=== PATIENT | male | born 1945 | race Caucasian/White ===

== ENCOUNTER 2019-08-06 17:17 | Inpatient (IN) ==
[2019-08-06] MEDS ORDERED: Ondansetron 4 MG/2 ML VIAL IVP ONE (17:37)
[2019-08-06] MEDS ORDERED: Morphine Sulfate 2 MG/ML SYRINGE IVP ONE (17:37)
[2019-08-06] MEDS ORDERED: Isovue-370 500 ML BOTTLE IVP ONE (17:39)
[2019-08-06 17:56] LABS: Basophils # 0.1 K/mcL (0.0-0.2); Basophils % 0.3 %; Eosinophils % 0.1 %; Hematocrit 47.9 % (37.5-50.1); Hemoglobin 15.9 g/dL (12.9-16.9); Immature Granulocytes % 1.4 % (0-4); Lymphocytes # 0.6 K/mcL (0.6-4.6); Lymphocytes % 2.9 %; Mean Corpuscular HGB Conc 33.2 g/dL (31.6-35.5); Mean Corpuscular Hemoglobin 28.7 pg (28.0-33.3); Mean Corpuscular Volume 86.5 fL (83.0-100.0); Mean Platelet Volume 10.2 fL (9.4-12.4); Monocytes # 1.2 K/mcL (0.0-1.3); Monocytes % 5.6 %; Neutrophils # 19.3 K/mcL (1.6-8.9); Platelet Count 253 K/mcL (140-400); Red Blood Count 5.54 M/mcL (4.19-5.50); Segmented Neutrophils % 89.7 %; White Blood Count 21.5 K/mcL (4.3-11.1)
[2019-08-06 18:05] LABS: INR 1.2; Prothrombin Time 13.2 Seconds (9.4-12.1)
[2019-08-06 18:08] LABS: Activated Partial Thrombo Time 24.8 Seconds (26.0-36.0)
[2019-08-06] MEDS ORDERED: cefTRIAXone 1,000 MG in Water for inj. (sterile) 10 ML IVP ONE (19:02)
[2019-08-06] MEDS ORDERED: 0.9 % Sodium Chloride 1,000 ML IV ONE (19:03)
[2019-08-06 19:05] LABS: Alanine Aminotransferase 13 Units/L (7-52); Albumin 3.3 g/dL (3.5-5.7); Albumin/Globulin Ratio 0.9 (1.1-2.2); Alkaline Phosphatase 106 Units/L (34-104); Amylase 49 Units/L (29-103); Aspartate Amino Transferase 11 Units/L (13-39); BUN/Creatinine Ratio 52 (6-26); Bilirubin,Direct 0.2 mg/dL (0.0-0.2); Bilirubin,Indirect 0.3 mg/dL (0.0-1.0); Bilirubin,Total 0.5 mg/dL (0.3-1.0); Blood Urea Nitrogen 82 mg/dL (8-23); Calcium 8.9 mg/dL (8.6-10.3); Carbon Dioxide 16 mEq/L (23-29); Chloride 77 mEq/L (98-107); Globulin 3.6 g/dL (2.4-3.5); Lipase 113 Units/L (11-82); Osmolality,Calculated 310 (280-300); Potassium 5.9 mEq/L (3.5-5.1); Sodium 117 mEq/L (136-145); Total Protein 6.9 g/dL (6.4-8.9); Troponin I < 0.03 ng/mL (< 0.04); eGFR For African Americans 52 (> 60); eGFR For Non-African Americans 43 (> 60)
[2019-08-06 19:07] LABS: Glucose 846 mg/dL (70-105)
[2019-08-06 19:37] LABS: VBG HCO3 18 mEq/L (21-27); VBG PCO2 36 mmHg (41-51); VBG PO2 80 mmHg (25-50)
[2019-08-06] MEDS ORDERED: Insulin Human Regular 5 UNIT in 0.9 % Sodium Chloride 10 ML IV ONE (19:37)
[2019-08-06] MEDS ORDERED: Calcium Gluconate 1gm/50mL 1 GM/50 ML BAG IVPB ONE (19:38)
[2019-08-06] MEDS ORDERED: Sodium Bicarbonate 50 MEQ/50 ML VIAL IVP ONE (19:39)
[2019-08-06] MEDS ORDERED: *HR* Dextrose 50 % in Water (Syg) 50 ML SYRINGE IVP PRN ×2 (19:53→23:05)
[2019-08-06] MEDS ORDERED: Insulin Human Regular 100 UNIT in 0.9 % Sodium Chloride 100 ML IVC SCH ×2 (20:00→23:30)
[2019-08-06] MEDS ORDERED: Naloxone 0.4 MG/ML INJ IVP PRN (20:48)
[2019-08-06] MEDS ORDERED: Amiodarone 150 MG in D5% in Water 100 ML IVPB ONE (20:55)
[2019-08-06] MEDS ORDERED: Amiodarone Premix 150 MG/100 ML BAG IVPB ONE (21:00)
[2019-08-06 22:01] LABS: Bacteria,Urine None Seen per hpf (None-Few); Squamous Epithelial Cell,Urine Many per lpf (None-Few)
[2019-08-06 22:02] LABS: Bilirubin,Urine Small (Negative); Blood,Urine Negative (Negative); Clarity,Urine Slightly Cloudy (Clear); Color,Urine Yellow (Yellow); Glucose,Urine (UA) 500 mg/dL (Normal); Ketones,Urine Trace mg/dL (Negative); Leukocyte Esterase,Urine Negative (Negative); Nitrite,Urine Negative (Negative); Protein,Urine 30 mg/dL (Neg-Trace); Specific Gravity,Urine 1.015 (1.010-1.025); Urobilinogen,Urine Normal (Normal)
[2019-08-06 22:34] LABS: Hyaline Casts,Urine Many per lpf (None-Few); Mucus,Urine Few per lpf (Few)
[2019-08-06 22:48] LABS: Calcium 8.4 mg/dL (8.6-10.3)
[2019-08-06 22:54] LABS: Carcinoembryonic Antigen 65.5 ng/mL (Less than 5.0)
[2019-08-06] MEDS ORDERED: 0.9 % Sodium Chloride 500 ML ONE (23:03)
[2019-08-06] MEDS ORDERED: Albumin 25% 25gram/100mL 25 GM/100 ML IV.SOLN IVC SCH (23:30)
[2019-08-06] MEDS ORDERED: Lidocaine -MPF 1% 5 ML AMPUL INFILT ONE (23:52)
[2019-08-07] MEDS: Albumin 25% 25gram/100mL 25 GM/100 ML IV.SOLN IVC SCH ×8 (00:21→11:48)
[2019-08-07 00:37] LABS: Calcium 8.4 mg/dL (8.6-10.3); Potassium 5.1 mEq/L (3.5-5.1)
[2019-08-07] MEDS ORDERED: D5% in 0.45% NACL 1,000 ML IVC PRN (00:55)
[2019-08-07] MEDS ORDERED: D5% in 0.45% NACL w KCl 20 MEQ/1,000 ML MLS IVC PRN (00:55)
[2019-08-07] MEDS ORDERED: 0.9 % Sodium Chloride 1,000 ML IVC SCH (01:00)
[2019-08-07] MEDS ORDERED: *HR* Heparin 5,000 UNIT/ML VIAL IVP PRN ×2 (01:20)
[2019-08-07] MEDS ORDERED: *HR* Heparin 5,000 UNIT/ML VIAL IVP ONE (01:20)
[2019-08-07] MEDS ORDERED: Heparin 25,000 UNIT/250 ML D5W 25,000 UNIT/250 ML IV.SOLN IVC SCH (01:30)
[2019-08-07 01:51] LABS: Calcium 8.2 mg/dL (8.6-10.3); Potassium 5.1 mEq/L (3.5-5.1)
[2019-08-07 02:38] LABS: Hematocrit 39.5 % (37.5-50.1); Mean Corpuscular HGB Conc 34.4 g/dL (31.6-35.5); Mean Corpuscular Hemoglobin 29.1 pg (28.0-33.3); Mean Corpuscular Volume 84.4 fL (83.0-100.0); Mean Platelet Volume 10.4 fL (9.4-12.4); Platelet Count 196 K/mcL (140-400); Red Blood Count 4.68 M/mcL (4.19-5.50); Red Cell Distribution Width 12.9 % (11.5-14.5); White Blood Count 21.1 K/mcL (4.3-11.1)
[2019-08-07] MEDS: 0.9 % Sodium Chloride w KCl 20 MEQ/1,000 ML MLS IVC PRN ×2 (02:39→07:10)
[2019-08-07 02:42] LABS: Heparin anti-factor XA UFH < 0.04 IU/mL (0.30-0.70); INR 1.2; Prothrombin Time 13.3 Seconds (9.4-12.1)
[2019-08-07 03:04] LABS: Hemoglobin 13.6 g/dL (12.9-16.9)
[2019-08-07 03:05] LABS: Hepatitis B Surface Antigen Nonreactive (Nonreactive)
[2019-08-07 03:07] LABS: Calcium 8.3 mg/dL (8.6-10.3); Potassium 5.3 mEq/L (3.5-5.1)
[2019-08-07 03:34] LABS: Hepatitis B Core IgM Nonreactive (Nonreactive)
[2019-08-07 03:36] LABS: Hepatitis C Virus Antibody Nonreactive (Nonreactive)
[2019-08-07 03:38] LABS: Hepatitis A Antibody IgM Nonreactive (Nonreactive)
[2019-08-07 04:15] LABS: Total Protein,Peritoneal Fluid 4.5 g/dL
[2019-08-07 04:19] LABS: Appearance of Peritoneal Fl CLOUDY (Clear)
[2019-08-07 05:22] LABS: Basophils % 0.1 %; Eosinophils # 0.1 K/mcL (0.0-0.6); Eosinophils % 0.3 %; Immature Granulocytes % 0.8 % (0-4); Lymphocytes # 1.9 K/mcL (0.6-4.6); Lymphocytes % 8.7 %; Mean Corpuscular HGB Conc 33.3 g/dL (31.6-35.5); Mean Corpuscular Hemoglobin 28.4 pg (28.0-33.3); Mean Corpuscular Volume 85.1 fL (83.0-100.0); Mean Platelet Volume 10.2 fL (9.4-12.4); Monocytes # 1.3 K/mcL (0.0-1.3); Monocytes % 5.9 %; Platelet Count 181 K/mcL (140-400); Red Blood Count 4.23 M/mcL (4.19-5.50); Red Cell Distribution Width 12.8 % (11.5-14.5); Segmented Neutrophils % 84.2 %; White Blood Count 21.3 K/mcL (4.3-11.1)
[2019-08-07 05:29] LABS: INR 1.2; Prothrombin Time 14.1 Seconds (9.4-12.1)
[2019-08-07 05:42] LABS: Chol/HDL Ratio 5.9 (0-4.9); Magnesium 2.7 mg/dL (1.6-2.6)
[2019-08-07 06:01] LABS: Calcium 8.2 mg/dL (8.6-10.3)
[2019-08-07 08:53] LABS: VBG HCO3 23 mEq/L (21-27); VBG PCO2 34 mmHg (41-51); VBG PH 7.44 pH Units (7.32-7.42); VBG PO2 140 mmHg (25-50)
[2019-08-07 10:10] LABS: BUN/Creatinine Ratio 65 (6-26); Blood Urea Nitrogen 75 mg/dL (8-23); Calcium 8.1 mg/dL (8.6-10.3); Carbon Dioxide 22 mEq/L (23-29); Chloride 95 mEq/L (98-107); Glucose 179 mg/dL (70-105); Osmolality,Calculated 291 (280-300); Potassium 4.4 mEq/L (3.5-5.1); Sodium 127 mEq/L (136-145); eGFR For African Americans > 60 (> 60); eGFR For Non-African Americans > 60 (> 60)
[2019-08-07] MEDS: cefTRIAXone 2,000 MG in Water for inj. (sterile) 20 ML IVP SCH (10:40)
[2019-08-07] MEDS: Azithromycin 500 MG in 0.9 % Sodium Chloride 250 ML IVPB SCH (10:40)
[2019-08-07] MEDS: Insulin DETEMIR 100 UNIT/ML X5UNITS SQ SCH ×2 (10:47→22:52)
[2019-08-07] MEDS: Insulin LISPRO 300 UNITS/3 ML VIAL SQ SCH ×4 (11:50→17:19)
[2019-08-07 12:12] LABS: Potassium,Urine 59.7 mEq/L
[2019-08-07] MEDS ORDERED: Ipratropium/Albuterol Neb 3 ML IH PRN (13:12)
[2019-08-07] MEDS: *HR* Heparin 5,000 UNIT/ML VIAL SQ SCH (17:20)
[2019-08-07] MEDS: *HR* HYDROcodone/Acet 5/325 mg TABLET PO PRN (18:30)
[2019-08-08 02:21] LABS: Basophils % 0.1 %; Eosinophils # 0.3 K/mcL (0.0-0.6); Hematocrit 35.9 % (37.5-50.1); Hemoglobin 12.1 g/dL (12.9-16.9); Immature Granulocytes % 0.4 % (0-4); Lymphocytes # 1.2 K/mcL (0.6-4.6); Lymphocytes % 7.9 %; Mean Corpuscular HGB Conc 33.7 g/dL (31.6-35.5); Mean Corpuscular Hemoglobin 29.4 pg (28.0-33.3); Mean Corpuscular Volume 87.3 fL (83.0-100.0); Mean Platelet Volume 10.5 fL (9.4-12.4); Monocytes # 0.7 K/mcL (0.0-1.3); Monocytes % 4.3 %; Neutrophils # 13.3 K/mcL (1.6-8.9); Platelet Count 145 K/mcL (140-400); Red Blood Count 4.11 M/mcL (4.19-5.50); Red Cell Distribution Width 13.2 % (11.5-14.5); Segmented Neutrophils % 85.3 %; White Blood Count 15.6 K/mcL (4.3-11.1)
[2019-08-08 02:50] LABS: BUN/Creatinine Ratio 70 (6-26); Blood Urea Nitrogen 56 mg/dL (8-23); Calcium 8.1 mg/dL (8.6-10.3); Carbon Dioxide 22 mEq/L (23-29); Chloride 96 mEq/L (98-107); Glucose 198 mg/dL (70-105); Magnesium 2.8 mg/dL (1.6-2.6); Osmolality,Calculated 287 (280-300); Phosphorous 2.8 mg/dL (2.7-4.5); Potassium 4.1 mEq/L (3.5-5.1); Sodium 128 mEq/L (136-145); eGFR For African Americans > 60 (> 60); eGFR For Non-African Americans > 60 (> 60)
[2019-08-08] MEDS: *HR* Heparin 5,000 UNIT/ML VIAL SQ SCH ×2 (04:20→19:11)
[2019-08-08] MEDS: *HR* HYDROcodone/Acet 5/325 mg TABLET PO PRN (04:20)
[2019-08-08] MEDS: Insulin DETEMIR 100 UNIT/ML X5UNITS SQ SCH ×2 (08:34→19:56)
[2019-08-08] MEDS: Spironolactone 25 MG TABLET PO SCH (08:34)
[2019-08-08] MEDS: Insulin LISPRO 300 UNITS/3 ML VIAL SQ SCH ×6 (08:35→17:05)
[2019-08-08] MEDS: cefTRIAXone 2,000 MG in Water for inj. (sterile) 20 ML IVP SCH (08:38)
[2019-08-08] MEDS: Azithromycin 500 MG in 0.9 % Sodium Chloride 250 ML IVPB SCH (08:39)
[2019-08-08 09:15] LABS: Albumin 3.5 g/dL (3.5-5.7)
[2019-08-08 10:05] LABS: AFP Tumor Marker Non-Pregnant 3 ng/mL (0-9)
[2019-08-08] MEDS ORDERED: Albumin 25% 25gram/100mL 25 GM/100 ML IV.SOLN IVPB ONE (11:10)
[2019-08-08 11:38] LABS: Estimated Average Glucose 335 mg/dl
[2019-08-08] MEDS ORDERED: 0.9 % Sodium Chloride 1,000 ML IVC ONE ×2 (19:28→20:38)
[2019-08-08] MEDS ORDERED: 0.9 % Sodium Chloride 1,000 ML ONE (19:41)
[2019-08-08] MEDS: 0.9 % Sodium Chloride 1,000 ML IVC SCH (23:15)
[2019-08-08 23:48] LABS: Fluid Source for Albumin PERITONEAL FL
[2019-08-09] MEDS: *HR* Heparin 5,000 UNIT/ML VIAL SQ SCH ×2 (05:08→17:16)
[2019-08-09] MEDS: 0.9 % Sodium Chloride 1,000 ML IVC SCH (06:01)
[2019-08-09 07:28] LABS: Basophils % 0.1 %; Eosinophils # 0.3 K/mcL (0.0-0.6); Eosinophils % 1.9 %; Hematocrit 37.6 % (37.5-50.1); Hemoglobin 12.2 g/dL (12.9-16.9); Immature Granulocytes % 0.5 % (0-4); Lymphocytes # 1.2 K/mcL (0.6-4.6); Lymphocytes % 8.8 %; Mean Corpuscular HGB Conc 32.4 g/dL (31.6-35.5); Mean Corpuscular Hemoglobin 28.8 pg (28.0-33.3); Mean Corpuscular Volume 88.7 fL (83.0-100.0); Mean Platelet Volume 10.6 fL (9.4-12.4); Monocytes # 0.7 K/mcL (0.0-1.3); Monocytes % 4.9 %; Neutrophils # 11.4 K/mcL (1.6-8.9); Platelet Count 137 K/mcL (140-400); Red Blood Count 4.24 M/mcL (4.19-5.50); Red Cell Distribution Width 13.6 % (11.5-14.5); Segmented Neutrophils % 83.8 %; White Blood Count 13.6 K/mcL (4.3-11.1)
[2019-08-09 08:18] LABS: BUN/Creatinine Ratio 53 (6-26); Blood Urea Nitrogen 33 mg/dL (8-23); Calcium 7.4 mg/dL (8.6-10.3); Carbon Dioxide 22 mEq/L (23-29); Chloride 102 mEq/L (98-107); Glucose 131 mg/dL (70-105); Magnesium 2.4 mg/dL (1.6-2.6); Osmolality,Calculated 281 (280-300); Phosphorous 2.5 mg/dL (2.7-4.5); Sodium 131 mEq/L (136-145); eGFR For African Americans > 60 (> 60); eGFR For Non-African Americans > 60 (> 60)
[2019-08-09] MEDS: Insulin LISPRO 300 UNITS/3 ML VIAL SQ SCH ×6 (08:35→17:14)
[2019-08-09] MEDS: Spironolactone 25 MG TABLET PO SCH (08:36)
[2019-08-09] MEDS: cefTRIAXone 2,000 MG in Water for inj. (sterile) 20 ML IVP SCH (08:37)
[2019-08-09] MEDS: Insulin DETEMIR 100 UNIT/ML X5UNITS SQ SCH ×2 (08:40→20:24)
[2019-08-09 09:53] LABS: Cancer Antigen-GI (CA 19-9) 17615 U/mL (0-37)
[2019-08-09] MEDS ORDERED: Albumin 25% 25gram/100mL 25 GM/100 ML IV.SOLN IVPB ONE (11:55)
[2019-08-10 04:49] LABS: Basophils % 0.3 %; Eosinophils # 0.2 K/mcL (0.0-0.6); Eosinophils % 1.8 %; Hematocrit 42.3 % (37.5-50.1); Hemoglobin 13.6 g/dL (12.9-16.9); Immature Granulocytes % 0.7 % (0-4); Lymphocytes # 1.4 K/mcL (0.6-4.6); Lymphocytes % 10.7 %; Mean Corpuscular HGB Conc 32.2 g/dL (31.6-35.5); Mean Corpuscular Hemoglobin 28.5 pg (28.0-33.3); Mean Corpuscular Volume 88.7 fL (83.0-100.0); Mean Platelet Volume 10.3 fL (9.4-12.4); Monocytes # 0.8 K/mcL (0.0-1.3); Monocytes % 5.7 %; Neutrophils # 10.9 K/mcL (1.6-8.9); Platelet Count 142 K/mcL (140-400); Red Blood Count 4.77 M/mcL (4.19-5.50); Red Cell Distribution Width 13.7 % (11.5-14.5); Segmented Neutrophils % 80.8 %; White Blood Count 13.5 K/mcL (4.3-11.1)
[2019-08-10] MEDS ORDERED: 0.9 % Sodium Chloride 1,000 ML ONE (04:55)
[2019-08-10 05:06] LABS: BUN/Creatinine Ratio 47 (6-26); Blood Urea Nitrogen 34 mg/dL (8-23); Calcium 8.1 mg/dL (8.6-10.3); Carbon Dioxide 20 mEq/L (23-29); Chloride 96 mEq/L (98-107); Glucose 185 mg/dL (70-105); Magnesium 2.5 mg/dL (1.6-2.6); Osmolality,Calculated 286 (280-300); Phosphorous 3.9 mg/dL (2.7-4.5); Potassium 4.7 mEq/L (3.5-5.1); Sodium 132 mEq/L (136-145); eGFR For African Americans > 60 (> 60); eGFR For Non-African Americans > 60 (> 60)
[2019-08-10] MEDS ORDERED: 0.9 % Sodium Chloride 1,000 ML IVC ONE (05:08)
[2019-08-10] MEDS: *HR* Heparin 5,000 UNIT/ML VIAL SQ SCH ×2 (05:57→17:07)
[2019-08-10] MEDS ORDERED: Amiodarone Premix 360 MG/200 ML BAG IVC ONE ×2 (06:37→07:01)
[2019-08-10] MEDS: Spironolactone 25 MG TABLET PO SCH (07:29)
[2019-08-10] MEDS ORDERED: *HR* Digoxin 0.5 MG/2 ML AMPUL IVP SCH (09:00)
[2019-08-10] MEDS: Insulin DETEMIR 100 UNIT/ML X5UNITS SQ SCH ×2 (09:36→21:23)
[2019-08-10] MEDS: Insulin LISPRO 300 UNITS/3 ML VIAL SQ SCH ×6 (09:37→18:42)
[2019-08-10] MEDS: cefTRIAXone 2,000 MG in Water for inj. (sterile) 20 ML IVP SCH (09:37)
[2019-08-10] MEDS: Acetaminophen 325 MG TABLET PO PRN ×2 (09:38→23:52)
[2019-08-10] MEDS ORDERED: *HR* Digoxin 0.5 MG/2 ML AMPUL IVP ONE (12:23)
[2019-08-10] MEDS: Amiodarone Premix 360 MG/200 ML BAG IVC SCH ×2 (12:47→23:48)
[2019-08-11 02:24] LABS: Basophils % 0.2 %; Eosinophils # 0.4 K/mcL (0.0-0.6); Eosinophils % 2.5 %; Hematocrit 39.6 % (37.5-50.1); Hemoglobin 12.8 g/dL (12.9-16.9); Immature Granulocytes % 0.8 % (0-4); Lymphocytes # 2.7 K/mcL (0.6-4.6); Lymphocytes % 17.7 %; Mean Corpuscular HGB Conc 32.3 g/dL (31.6-35.5); Mean Corpuscular Volume 89.6 fL (83.0-100.0); Mean Platelet Volume 10.5 fL (9.4-12.4); Monocytes % 6.5 %; Platelet Count 138 K/mcL (140-400); Red Blood Count 4.42 M/mcL (4.19-5.50); Red Cell Distribution Width 13.9 % (11.5-14.5); Segmented Neutrophils % 72.3 %; White Blood Count 15.2 K/mcL (4.3-11.1)
[2019-08-11 02:42] LABS: BUN/Creatinine Ratio 45 (6-26); Blood Urea Nitrogen 42 mg/dL (8-23); Calcium 7.9 mg/dL (8.6-10.3); Carbon Dioxide 21 mEq/L (23-29); Chloride 101 mEq/L (98-107); Glucose 107 mg/dL (70-105); Magnesium 2.4 mg/dL (1.6-2.6); Osmolality,Calculated 283 (280-300); Potassium 4.1 mEq/L (3.5-5.1); Sodium 131 mEq/L (136-145); eGFR For African Americans > 60 (> 60); eGFR For Non-African Americans > 60 (> 60)
[2019-08-11] MEDS: *HR* Heparin 5,000 UNIT/ML VIAL SQ SCH ×2 (05:41→17:42)
[2019-08-11 08:40] LABS: INR 1.2; Prothrombin Time 14.1 Seconds (9.4-12.1)
[2019-08-11] MEDS: Spironolactone 25 MG TABLET PO SCH (08:45)
[2019-08-11] MEDS: Insulin LISPRO 300 UNITS/3 ML VIAL SQ SCH ×6 (08:45→17:03)
[2019-08-11] MEDS ORDERED: *HR* Digoxin 0.25 MG TABLET PO SCH (09:00)
[2019-08-11] MEDS: cefTRIAXone 2,000 MG in Water for inj. (sterile) 20 ML IVP SCH (10:14)
[2019-08-11] MEDS: Insulin DETEMIR 100 UNIT/ML X5UNITS SQ SCH ×2 (10:15→20:19)
[2019-08-11] MEDS ORDERED: Albumin 25% 12.5gm/50mL 12.5 GM/50 ML IV.SOLN IVPB ONE (16:19)
[2019-08-11] MEDS: Lactulose Oral Soln 20 GM/30 ML UDC PO SCH (20:19)
[2019-08-11] MEDS: *HR* HYDROcodone/Acet 5/325 mg TABLET PO PRN (22:49)
[2019-08-12] MEDS: *HR* Heparin 5,000 UNIT/ML VIAL SQ SCH (05:58)
[2019-08-12] MEDS: Lactulose Oral Soln 20 GM/30 ML UDC PO SCH ×2 (08:26→21:25)
[2019-08-12] MEDS: Spironolactone 25 MG TABLET PO SCH (08:27)
[2019-08-12] MEDS: Insulin LISPRO 300 UNITS/3 ML VIAL SQ SCH ×7 (08:30→17:51)
[2019-08-12] MEDS: Insulin DETEMIR 100 UNIT/ML X5UNITS SQ SCH ×2 (08:30→21:25)
[2019-08-12 10:42] LABS: Basophils % 0.2 %; Eosinophils # 0.3 K/mcL (0.0-0.6); Eosinophils % 1.7 %; Hematocrit 42.7 % (37.5-50.1); Immature Granulocytes % 0.7 % (0-4); Lymphocytes # 2.1 K/mcL (0.6-4.6); Lymphocytes % 12.5 %; Mean Corpuscular HGB Conc 32.8 g/dL (31.6-35.5); Mean Corpuscular Volume 88.6 fL (83.0-100.0); Mean Platelet Volume 10.2 fL (9.4-12.4); Monocytes # 0.8 K/mcL (0.0-1.3); Monocytes % 5.1 %; Neutrophils # 13.2 K/mcL (1.6-8.9); Platelet Count 165 K/mcL (140-400); Red Blood Count 4.82 M/mcL (4.19-5.50); Red Cell Distribution Width 14.2 % (11.5-14.5); Segmented Neutrophils % 79.8 %; White Blood Count 16.5 K/mcL (4.3-11.1)
[2019-08-12 10:52] LABS: BUN/Creatinine Ratio 46 (6-26); Blood Urea Nitrogen 51 mg/dL (8-23); Calcium 8.2 mg/dL (8.6-10.3); Carbon Dioxide 19 mEq/L (23-29); Chloride 101 mEq/L (98-107); Glucose 131 mg/dL (70-105); Osmolality,Calculated 287 (280-300); Potassium 4.3 mEq/L (3.5-5.1); Sodium 131 mEq/L (136-145); eGFR For African Americans > 60 (> 60); eGFR For Non-African Americans > 60 (> 60)
[2019-08-12 10:53] LABS: Magnesium 2.7 mg/dL (1.6-2.6); Phosphorous 4.3 mg/dL (2.7-4.5)
[2019-08-12] MEDS: Amiodarone Premix 360 MG/200 ML BAG IVC SCH (11:08)
[2019-08-12] MEDS ORDERED: Ondansetron 4 MG/2 ML VIAL ONE (16:48)
[2019-08-12] MEDS ORDERED: *HR* Propofol 200 MG/20 ML VIAL IVP ONE (16:48)
[2019-08-12] MEDS ORDERED: Lidocaine -MPF 2% 2 ML VIAL ONE (16:48)
[2019-08-12] MEDS ORDERED: *HR* Succinylcholine 200 MG/10 ML VIAL IVP ONE (16:48)
[2019-08-12] MEDS ORDERED: Dexamethasone 4 MG/ML VIAL ONE (16:48)
[2019-08-12] MEDS ORDERED: *HR* FentaNYL (PF) 100 MCG/2 ML VIAL ONE (16:48)
[2019-08-12] MEDS ORDERED: Ondansetron 4 MG/2 ML VIAL IVP PRN (17:32)
[2019-08-12] MEDS ORDERED: *HR* Labetalol 20 MG/4 ML SYRINGE IVP PRN (17:32)
[2019-08-12] MEDS ORDERED: *HR* PHENYLEPHRINE 1,000 MCG/10 ML SYRINGE IVP ONE (17:53)
[2019-08-12] MEDS ORDERED: *HR* Digoxin 0.5 MG/2 ML AMPUL IVP SCH (18:00)
[2019-08-12] MEDS ORDERED: Ipratropium/Albuterol Neb 3 ML IH PRN (20:49)
[2019-08-12] MEDS ORDERED: *HR* Dextrose 50 % in Water (Syg) 50 ML SYRINGE IVP PRN (20:49)
[2019-08-12] MEDS ORDERED: Acetaminophen 325 MG TABLET PO PRN (20:49)
[2019-08-12] MEDS ORDERED: *HR* HYDROcodone/Acet 5/325 mg TABLET PO PRN (20:49)
[2019-08-12] MEDS ORDERED: Naloxone 0.4 MG/ML INJ IVP PRN (20:49)
[2019-08-13] MEDS: *HR* Digoxin 0.5 MG/2 ML AMPUL IVP SCH ×2 (01:30→06:13)
[2019-08-13] MEDS ORDERED: *HR* Heparin 5,000 UNIT/ML VIAL SQ SCH (06:00)
[2019-08-13] MEDS ORDERED: Insulin LISPRO 300 UNITS/3 ML VIAL SQ SCH ×2 (07:30→08:00)
[2019-08-13 07:35] VITALS: BP 109/73
[2019-08-13] MEDS ORDERED: Spironolactone 25 MG TABLET PO SCH (09:00)
[2019-08-13] MEDS: Insulin DETEMIR 100 UNIT/ML X5UNITS SQ SCH (09:04)
[2019-08-13] MEDS: Lactulose Oral Soln 20 GM/30 ML UDC PO SCH (10:39)
== END 2019-08-13 11:11 | disposition hospice, home (50) | DRG 871 ==
LOC: EMEROOARM 17:17 → 2NNU 17:17 → SUATTDRO 21:23 → ICNU 21:53 → 2NNU 22:35
PROVIDERS: ADMIT Internal Medicine; ATTEND Pharmacist
PROC: [UNRECOGNIZED PROCEDURE] (2019-08-11 12:00)